=== PATIENT | male | born 1950 | race Caucasian/White ===

== ENCOUNTER → 2019-07-24 | Day surgery (SDC) | payer MEDICARE ==
[2019-07-19 14:34] LABS: BASOPHILS # (AUTO) 0.1 (0.0-0.1); BASOPHILS % 0.8 % (0.0-1.0); EOSINOPHILS # (AUTO) 0.2 (0.0-0.4); EOSINOPHILS % 2.6 % (0.0-6.0); HEMATOCRIT 40.5 % (38.2-49.6); LYMPHOCYTES % 16.4 % (18.0-39.1); MEAN CORPUSCULAR HEMOGLOBIN 28.5 pg (28-32); MEAN CORPUSCULAR HGB CONC 32.1 g/dL (31-35); MEAN CORPUSCULAR VOLUME 88.8 fL (81-99); MONOCYTES # (AUTO) 0.6 (0.2-0.8); NEUTROPHILS # (AUTO) 4.2 (2.1-6.9); NEUTROPHILS % 69.4 % (38.7-80.0); PLATELET COUNT 233 x10e3/uL (140-360); RED BLOOD COUNT 4.56 x10e6/uL (4.3-5.7); RED CELL DISTRIBUTION WIDTH 13.7 % (11.7-14.4)
[~2019-07-24] MED LIST: ASPIR 8181 MG PO; BUPROPION XL150 MG PO; BUSPIRONE HCL5 MG PO; CLONAZEPAM0.5 MG PO; CRESTOR10 MG PO; MIDAZOLAM HCL 2 MG/2 ML VIAL ONE; MONTELUKAST SOD10 MG PO; NADOLOL40 MG PO; NEXIUM40 MG PO; PROBIOTIC PO; QUETIAPINE FUM100 MG PO; SYNTHROID100 MCG PO; TYLENOL EXTRA500 MG PO; VITAMIN D34000 UNIT PO; ZOLOFT100 MG PO
--- OUTSIDE RECORDS SUMMARY | 2019-07-24 05:07 | XMS REPORT ---
Author Author [facility] Address Unknown Phone Unavailable Care Team Providers Care Literature Professor Name Role Phone Unavailable Unavailable Problems This patient has no known problems. Allergies, Adverse Reactions, Alerts This patient has no known allergies or adverse reactions. Medications This patient has no known medications. Encounters Start Date/Time End Date/Time Encounter Type Admission Type Attending Clinicians Care Facility Care Department Encounter ID 2019-05-04 09:39:00 2019-05-04 09:39:00 Outpatient [id number]
--- OUTSIDE RECORDS SUMMARY | 2019-07-24 05:07 | XMS REPORT | Clinical Summary ---
Author Author [facility] Address Unknown Phone Unavailable Care Team Providers Care Study Manager Name Role Phone Vern Paniagua MD PCP Allergies Not on File Medications Not on file Active Problems Not on file Encounters Care Team Description Date Type Specialty Yoel Henson MD Spinal stenosis of lumbar region, unspecified whether neurogenic claudication present (Primary Dx) 06/13/2019 Transcribe Physical Therapy Orders after 07/23/2018 Social History Date Tobacco Use Types Packs/Day Years Used Never Assessed Sex Assigned at Date Recorded Not on file Industry Job Start Date Occupation Not on file Not on file Not on file Travel End Travel History Travel Start No recent travel history available. Last Filed Vital Signs Not on file Plan of Treatment Care Team Description Date Type Specialty Yoel Henson MD [id number] [place] [phone] Billie Dya, PT 07/27/2019 Office Visit Physical Therapy Yoel Henson [place] [id number] [place] [phone] Billie Day, PT 07/28/2019 Office [place] [address] [phone] Billie Day, PT 08/01/2019 Office [place] [address] [phone] Billie Day, PT 08/04/2019 [place] [address] [facility] [address] [place] [phone] Billie Day, PT 08/08/2019 [place] [address] [facility] [address] [place] [phone] Billie Day, PT 08/10/2019 Office Visit Physical Therapy Health Maintenance Due Date Last Done Comments COLONOSCOPY SCREENING 2001 SHINGLES VACCINES (#1) 2001 65+ PNEUMOCOCCAL VACCINE 2016 (1 of 2 - PCV13) INFLUENZA VACCINE 06/15/2019 Results Not on fileafter 07/23/2018 Insurance Type Payer Benefit Subscriber ID Effective Phone Address Plan / Dates Group HMO [facility] MEDICARE [facility] xxxxxxxxx 2018-P MEDICARE resent HMO/PPO Advance Directives For more information, please contact: [phone] Patient Care Information Associate Explanation Type Date Recorded Advance Directives, Living Will and Medical Power of Sample Dye Mixer
[2019-07-24 07:40] VITALS: BP 108/74
--- NOTE | 2019-07-24 12:07 | Operative Report ---
DATE OF PROCEDURE: 07/24/2019 SURGEON: uKrtis Cazares MD PREOPERATIVE DIAGNOSIS: Chronic gastroesophageal reflux disease. POSTOPERATIVE DIAGNOSES: 1. Chronic gastroesophageal reflux disease. 2. Small gastric polyp. 3. Gastritis. PREOPERATIVE INDICATION: Assess for mucosal disease. PROCEDURE: Esophagogastroduodenoscopy with biopsy of polyp (CPT 42440). ANESTHESIA: Moderate sedation with IV propofol. FLUIDS: As per Anesthesia. ESTIMATED BLOOD LOSS: Minimal. ASSISTANTS: None. COMPLICATIONS: None. DRAINS: None. SPECIMENS: Gastric polyp. GRAFTS: None. FINDINGS: 1. Small gastric polyp in the antrum. 2. Mild gastritis. DESCRIPTION OF PROCEDURE: The patient was brought to the endoscopy suite and was sedated with IV propofol. A preprocedure pause was performed. An adult-sized endoscope was introduced to the oropharynx and guided to the 2nd portion of the duodenum, no duodenal abnormalities were noted. No esophageal abnormalities were noted. There was a small gastric polyp in the antrum, which was biopsied with cold forceps. There was also some streaky gastritis. Prior to removing the endoscope, the stomach was desufflated and the scope was successfully removed, and the patient tolerated the procedure well. Type of wound is type 1, clean. Kurtis Cazares MD [facility] /[id number]
== END | disposition home or self-care (01) ==
LOC: OR 05:00
PROVIDERS: ATTEND Surgery
DX: K21.9 Gastro-esophageal reflux disease without esophagitis (principal); Z88.8 Allergy status to other drugs, medicaments and biological substances; I10 Essential (primary) hypertension; R06.83 Snoring; M19.90 Unspecified osteoarthritis, unspecified site; J30.2 Other seasonal allergic rhinitis; K59.00 Constipation, unspecified; E66.01 Morbid (severe) obesity due to excess calories; Z68.43 Body mass index [BMI] 50.0-59.9, adult; Z01.810 Encounter for preprocedural cardiovascular examination; Z01.812 Encounter for preprocedural laboratory examination; K63.5 Polyp of colon; K29.70 Gastritis, unspecified, without bleeding
CPT/HCPCS: 36415; 43239; 85025; 88305; 93005; J2250; 88312